=== PATIENT | male | born 1975 | race Caucasian/White ===

== ENCOUNTER 2019-03-16 21:30 | Emergency (ER) | payer MEDICAID ==
[~2019-03-16] VITALS: Ht 167.6 cm; Wt 74.1 kg
[2019-03-16 21:32] VITALS: BP 148/76; PULSE 89; RESP 18; Ht 167.6 cm; Wt 74.1 kg
[2019-03-17] MEDS ORDERED: AZITHROMYCIN 500 MG TAB PO ONE (00:30)
[2019-03-17] MEDS ORDERED: CEFTRIAXONE 250 MG INJ IM ONE (00:30)
[2019-03-17] MEDS ORDERED: CIPR500T4 PO (01:52)
--- NOTE | 2019-04-06 17:07 | ERD ---
ER Documentation Chief Complaint Chief Complaint FREQUENT URINATION WITH BLOOD X'S 1 DAY HPI 43-year-old male with complaint of urinary urgency as well as blood in the urine for the past day. Patient denies any treatments. Patient denies any urinary retention, genital pain, fevers, chills, dysuria, flank pain, vomiting, nausea, diarrhea, abdominal pain. ROS All systems reviewed and are negative except as per history of present illness. Medications Home Meds Active Scripts Ciprofloxacin Hcl* (Ciprofloxacin Hcl*) 500 Mg Tablet, 500 MG PO BID for 7 Days, TAB Prov:CESAR CHRISTINA 03/17/19 Allergies Allergies: Coded Allergies: No Known Allergy (Unverified , 03/16/19) PMhx/Soc Medical and Surgical Hx: pt denies Medical Hx, pt denies Surgical Hx Hx Alcohol Use: No Hx Substance Use: No Hx Tobacco Use: No Smoking Status: Never smoker FmHx Family History: No diabetes, No coronary disease, No other Physical Exam Physical Exam Const: No acute distress Head: Atraumatic Eyes: Normal Conjunctiva ENT: Normal External Ears, Nose and Mouth. Neck: Full range of motion. No meningismus. Resp: Clear to auscultation bilaterally Cardio: Regular rate and rhythm, no murmurs Abd: Soft, non tender, non distended. Normal bowel sounds Skin: No petechiae or rashes Back: No midline or flank tenderness Ext: No cyanosis, or edema Neur: Awake and alert Psych: Normal Mood and Affect Results 24 hrs Laboratory Tests Test 03/17/19 00:41 Urine Color YELLOW Urine Clarity SLIGHTLY CLOUDY Urine pH 6.0 Urine Specific [place] 1.011 Urine Ketones NEGATIVE mg/dL Urine Nitrite NEGATIVE mg/dL Urine Bilirubin NEGATIVE mg/dL Urine Urobilinogen NEGATIVE mg/dL Urine Leukocyte Esterase 3+ Gomez/ul Urine Microscopic RBC 15 /HPF Urine Microscopic WBC 52 /HPF Urine Squamous Epithelial Cells FEW /HPF Urine Bacteria FEW /HPF Urine Hemoglobin 3+ mg/dL Urine Glucose NEGATIVE mg/dL Urine Total Protein NEGATIVE mg/dl Chlamydia trachomatis RNA (TMA) NOT DETECTED Chlamydia/GC Comment SEE NOTE Neisseria gonorrhoeae RNA (TMA) NOT DETECTED Current Medications Medications Dose Sig/Antonio Start Time Status Last (Trade) Ordered Route PRN Stop Time Admin Dose Reason Admin Ceftriaxone 250 mg ONCE ONCE 03/17/19 DC 03/17/19 Sodium IM 00:30 00:42 (Rocephin) 03/17/19 00:31 1,000 mg ONCE ONCE 03/17/19 DC 03/17/19 Azithromycin PO 00:30 00:42 (Zithromax) 03/17/19 00:32 Procedures/MDM MDM: Patient's presentation was concerning for UTI. UA did show blood as well as leukocytes in the urine therefore treated for UTI with rx for cipro. In addition, patient is sexually active so will be treated prophylactically with ceftriaxone and azithromycin. Patient advised to see urologist as UTIs are uncommon in males and may represent other underlying pathology. Urine sent out for culture as well. Patient understood and agreed to follow up with urology. At this time I have low suspicion for urinary retention, nephrolithiasis, testicular torsion, or any other emergent condition. At this time, patient is stable for discharge and outpatient management. I have instructed the patient to follow-up with his/her primary care physician in 1-2 days. I have discussed with the patient the possibility of needing to see a specialist for further workup and imaging studies if symptoms persist. I have instructed the patient to promptly return to the ER for any new or worsening symptoms including but not limited to increased pain, fever, nausea, vomiting, weakness or LOC. The patient and/or family expressed understanding of and agreement with this plan. All questions were answered. Home care instructions were provided. Communication with patient both during the exam and instructions for discharge were performed with using a direct service professional . Patient gave verbal confirmation to the practitioner, through the direct service professional, that they understood everythign that was being said to them DISCLAIMER: Inadvertent spelling and grammatical errors are likely due to EHR/dictation software use and do not reflect on the overall quality of patient care. Also, please note that the electronic time recorded on this note does not necessarily reflect the actual time of the patient encounter. Departure Diagnosis: Primary Impression: UTI (urinary tract infection) Condition: Stable Patient Instructions: Understanding Urinary Tract Infections (UTIs) Referrals: [facility] YOU HAVE RECEIVED A MEDICAL SCREENING EXAM AND THE RESULTS INDICATE THAT YOU DO NOT HAVE A CONDITION THAT REQUIRES URGENT TREATMENT IN THE EMERGENCY DEPARTMENT. FURTHER EVALUATION AND TREATMENT OF YOUR CONDITION CAN WAIT UNTIL YOU ARE SEEN IN YOUR DOCTORS OFFICE WITHIN THE NEXT 1-2 DAYS. IT IS YOUR RESPONSIBILITY TO MAKE AN APPOINTMENT FOR FOLOW-UP CARE. IF YOU HAVE A PRIMARY DOCTOR --you should call your primary doctor and schedule an appointment IF YOU DO NOT HAVE A PRIMARY DOCTOR YOU CAN CALL OUR PHYSICIAN REFERRAL HOTLINE AT IF YOU CAN NOT AFFORD TO SEE A PHYSICIAN YOU CAN CHOSE FROM THE FOLLOWING [facility] [id number] [facility] [address] [facility] [address] [facility] [address] [facility] [address]. [facility] [address] Additional Instructions: FOLLOW UP WITH YOUR PRIMARY CARE PHYSICIAN TOMORROW.Return to this facility if you are not improving as expected. CESAR CHRISTINA Apr 06, 2019 17:06
== END 2019-03-17 02:01 | disposition home or self-care (01) ==
LOC: FTE 21:30
DX: N39.0 Urinary tract infection, site not specified (principal)
CPT/HCPCS: 81001; 87086; 87591; J0696; Z7610